=== PATIENT | male | born 2000 | race African-American/Black ===

== ENCOUNTER 2021-10-23 23:58 | Inpatient (IN) | payer MEDICAID ==
[~2021-10-23] VITALS: Ht 175.3 cm; Wt 64.0 kg
[2021-10-24] MEDS ORDERED: FENTANYL CITRATE/PF 50MCG/ML 2ML VIAL IV ONE ×3 (00:45→05:30)
[2021-10-24 01:14] LABS: BASOPHILS % 0.5 % (0.0-2.0); EOSINOPHILS % 0.5 % (0.0-5.0); HEMATOCRIT. 41.1 % (42.0-52.0); HEMOGLOBIN. 13.8 g/dL (14.0-18.0); MEAN CORPUSCULAR HEMOGLOBIN 29.7 pg (28.0-32.0); MEAN CORPUSCULAR VOLUME 88.2 fL (80.0-94.0); MEAN PLATELET VOLUME 8.7 fl (7.4-10.4); PLATELET 283 x1000/uL (130-400); RED BLOOD CELL COUNT 4.66 mill/uL (4.7-6.1); RED CELL DISTRIBUTION WIDTH 13.8 % (11.6-14.6)
[2021-10-24 01:20] LABS: CHLORIDE 109 mEq/L (98-107)
[2021-10-24] MEDS ORDERED: KETOROLAC 15MG/ML VIAL IV ONE (04:15)
[2021-10-24] MEDS ORDERED: KETAMINE HCL 50 MG/ML 10ML IV ONE (04:30)
[2021-10-24 08:00] VITALS: BP 126/64
[2021-10-24] MEDS ORDERED: CLONIDINE 0.2MG TABLET PO PRN (08:15)
[2021-10-24] MEDS ORDERED: ACETAMINOPHEN 325MG TABLET PO PRN (08:15)
[2021-10-24] MEDS ORDERED: ZOLPIDEM TARTRATE 5MG TABLET PO PRN (08:15)
[2021-10-24] MEDS: ENOXAPARIN 40MG/0.4ML SYR SUBCUT SCH (09:18)
[2021-10-24 12:00] VITALS: BP 121/63
[2021-10-24] MEDS: MORPHINE SULFATE 2 MG/ML CPJ (NOT FOR IM USE) IV PRN ×3 (12:41→21:08)
[2021-10-24 15:19] VITALS: BP 126/64
[2021-10-24 16:00] VITALS: BP 106/61
[2021-10-24] MEDS ORDERED: NALOXONE HCL 0.4MG/ML VIAL IV PRN (16:00)
[2021-10-24 20:00] VITALS: BP 119/60
[2021-10-25] VITALS: BP 128/68
[2021-10-25] MEDS: MORPHINE SULFATE 2 MG/ML CPJ (NOT FOR IM USE) IV PRN ×3 (00:58→15:25)
[2021-10-25 04:00] VITALS: BP 140/63
[2021-10-25 07:01] LABS: CLARITY URINE CLEAR (CLEAR); COLOR URINE YELLOW (YELLOW); KETONES URINE 1+ (NEGATIVE); LEUKOCYTE ESTERASE URINE 1+ (NEGATIVE); NITRITE URINE NEGATIVE (NEGATIVE); OCCULT BLOOD URINE NEGATIVE (NEGATIVE); PROTEIN URINE TRACE (NEGATIVE); SPECIFIC GRAVITY URINE 1.033 (1.005-1.030); UROBILINOGEN URINE 0.2 E.U./dL (0.2-1.0)
[2021-10-25 08:00] VITALS: BP 127/62
[2021-10-25] MEDS ORDERED: BUPIVACAINE HCL/PF 0.25% (2.5MG/ML) 10ML ONE (08:47)
[2021-10-25] MEDS ORDERED: VANCOMYCIN HCL 1 GM/VIAL ONE (08:47)
[2021-10-25] MEDS: ENOXAPARIN 40MG/0.4ML SYR SUBCUT SCH (08:51)
[2021-10-25] MEDS ORDERED: FENTANYL CITRATE/PF 50MCG/ML 2ML VIAL ONE ×2 (09:59→10:41)
[2021-10-25] MEDS ORDERED: MIDAZOLAM HCL 2 MG/2 ML VIAL ONE (10:00)
[2021-10-25] MEDS ORDERED: PROPOFOL 200MG/20ML VIAL IV ONE ×3 (10:00→10:43)
[2021-10-25] MEDS ORDERED: DEXAMETHASONE 4MG/ML 1ML VIAL ONE (10:04)
[2021-10-25] MEDS ORDERED: ONDANSETRON HCL 4MG/2ML INJ ONE (10:15)
[2021-10-25] MEDS ORDERED: PHENYLEPHRINE HCL 10 MG/ML 1ML (IV VIAL) IV ONE (10:20)
[2021-10-25] MEDS ORDERED: HYDROMORPHONE HCL/PF 2MG/ML (OR) ONE (10:42)
[2021-10-25] MEDS ORDERED: ROCURONIUM BROMIDE 10MG/ML VIAL 5ML IV ONE (10:43)
[2021-10-25] MEDS ORDERED: MEPERIDINE HCL/PF 25MG/ML CPJ IV PRN (11:00)
[2021-10-25] MEDS ORDERED: LABETALOL 5MG/ML SYR 20 MG/4 ML SYRINGE IV PRN (11:00)
[2021-10-25] MEDS ORDERED: HYDROMORPHONE HCL/PF 2MG/ML CPJ IV PRN (11:00)
[2021-10-25] MEDS ORDERED: ONDANSETRON HCL 4MG/2ML INJ IV PRN (11:00)
[2021-10-25 16:00] VITALS: BP 134/56
[2021-10-25] MEDS: CEFAZOLIN 2,000 MG in DEXT 5% WATER 100 ML IV SCH (17:31)
[2021-10-25 20:00] VITALS: BP 128/68
[2021-10-25] MEDS: HYDROCODONE/ACETAMINOPHEN 5/325MG TABLET PO PRN (20:41)
[2021-10-26] VITALS: BP 129/71
[2021-10-26] MEDS: MORPHINE SULFATE 2 MG/ML CPJ (NOT FOR IM USE) IV PRN ×3 (00:36→20:37)
[2021-10-26] MEDS: CEFAZOLIN 2,000 MG in DEXT 5% WATER 100 ML IV SCH ×3 (01:52→17:55)
[2021-10-26 04:00] VITALS: BP 130/73
[2021-10-26 07:40] LABS: CHLORIDE 101 mEq/L (98-107)
[2021-10-26 07:59] LABS: BASOPHILS % 0.2 % (0.0-2.0); EOSINOPHILS % 0.3 % (0.0-5.0); HEMATOCRIT. 27.9 % (42.0-52.0); HEMOGLOBIN. 9.5 g/dL (14.0-18.0); LYMPHOCYTES % 15.3 % (20.0-50.0); MEAN CORPUSCULAR HEMOGLOBIN 29.7 pg (28.0-32.0); MEAN CORPUSCULAR VOLUME 86.9 fL (80.0-94.0); MEAN PLATELET VOLUME 9.5 fl (7.4-10.4); MONOCYTES % 11.9 % (2.0-8.0); NEUTROPHILS % 72.3 % (40.0-76.0); PLATELET 193 x1000/uL (130-400); RED BLOOD CELL COUNT 3.22 mill/uL (4.7-6.1); RED CELL DISTRIBUTION WIDTH 13.1 % (11.6-14.6)
[2021-10-26 08:00] VITALS: BP 137/65
[2021-10-26] MEDS: ENOXAPARIN 40MG/0.4ML SYR SUBCUT SCH (08:26)
[2021-10-26] MEDS: HYDROCODONE/ACETAMINOPHEN 5/325MG TABLET PO PRN ×3 (08:27→23:04)
[2021-10-26 12:00] VITALS: BP 131/63
[2021-10-26 16:00] VITALS: BP 125/68
[2021-10-26 20:00] VITALS: BP 127/76
[2021-10-27] VITALS: BP 123/71
[2021-10-27] MEDS: CEFAZOLIN 2,000 MG in DEXT 5% WATER 100 ML IV SCH ×2 (02:08→09:39)
[2021-10-27 04:00] VITALS: BP 133/59
[2021-10-27 08:00] VITALS: BP 137/71
[2021-10-27] MEDS: ENOXAPARIN 40MG/0.4ML SYR SUBCUT SCH (09:39)
[2021-10-27 12:00] VITALS: BP 126/66
[2021-10-27 16:00] VITALS: BP 133/66
[2021-10-27] MEDS ORDERED: LACTULOSE 20G/30ML UDC PO PRN (17:45)
[2021-10-27 20:00] VITALS: BP 136/69
[2021-10-27] MEDS: HYDROCODONE/ACETAMINOPHEN 5/325MG TABLET PO PRN (20:03)
[2021-10-27] MEDS ORDERED: LACTULOSE 20G/30ML UDC PO SCH (22:00)
[2021-10-28] VITALS: BP 129/74
[2021-10-28 04:00] VITALS: BP 126/77
[2021-10-28 08:00] VITALS: BP 133/68
[2021-10-28] MEDS: ENOXAPARIN 40MG/0.4ML SYR SUBCUT SCH (09:19)
[2021-10-28] MEDS: MORPHINE SULFATE 2 MG/ML CPJ (NOT FOR IM USE) IV PRN (09:23)
[2021-10-28 12:00] VITALS: BP 131/69
[2021-10-28 16:10] VITALS: BP 131/69
[2021-10-28] MEDS: HYDROCODONE/ACETAMINOPHEN 5/325MG TABLET PO PRN (16:10)
== END 2021-10-28 17:52 | disposition home health service (06) | DRG 308 ==
LOC: ER 23:58 → 6EST 10-24 04:54 → ENRESERV 10-24 05:06
PROVIDERS: ADMIT Internal Medicine; ATTEND Internal Medicine
PROC: 0QS604Z Reposition Right Upper Femur with Internal Fixation Device, Open Approach (ICD-10-PCS; principal; 2021-10-25)
DX: S72.301A Unspecified fracture of shaft of right femur, initial encounter for closed fracture (principal); E86.0 Dehydration; I10 Essential (primary) hypertension; F12.90 Cannabis use, unspecified, uncomplicated; Z20.822 Contact with and (suspected) exposure to COVID-19; Z87.891 Personal history of nicotine dependence; Z91.81 History of falling; V89.2XXA Person injured in unspecified motor-vehicle accident, traffic, initial encounter; Y93.89 Activity, other specified; Y92.89 Other specified places as the place of occurrence of the external cause; Y99.8 Other external cause status
CPT/HCPCS: 36415; 71045; 73502; 73552; 76000; 80048; 80053; 81003; 85025; 87426; 93005; 97116; 97161; 97165; 99285; C1713; J0690; J1100; J1170; J1650; J1885; J2250; J2270; J2370; J2405; J2704; J3010; J3370; J3490; J7060

== ENCOUNTER 2023-02-20 12:02 | Emergency (ER) | payer MEDICAID ==
[~2023-02-20] VITALS: Ht 177.8 cm; Wt 63.0 kg
[2023-02-20 12:08] VITALS: BP 123/59
== END 2023-02-20 12:37 | disposition left against medical advice (07) ==
LOC: ER 12:02
DX: M79.675 Pain in left toe(s) (principal); M79.674 Pain in right toe(s)
CPT/HCPCS: 99281